=== PATIENT | female | born 1990 ===

== ENCOUNTER 2021-02-17 09:18 | Inpatient (IN) | payer OTHER ==
[2021-02-17] MEDS ORDERED: NALOXONE 0.4 MG/1 ML INJ IV PRN ×2 (09:37→12:33)
--- NOTE | 2021-02-17 09:39 | Anesthesia Consultation ---
Anesthesia Consult and Med Hx Date of service: 02/17/21 - Airway Anesthetic Teeth Evaluation: Good ROM Head & Neck: Adequate Mental/Hyoid Distance: Adequate Mallampati Class: Class II Intubation Access Assessment: Probably Good - Pulmonary Exam CTA: Yes - Cardiac Exam Cardiac Exam: RRR - Pre-Operative Health Status ASA Pre-Surgery Classification: ASA2 Proposed Anesthetic Plan: Spinal - Pulmonary Hx Smoking: No Hx Sleep Apnea: No - Cardiovascular System Hx Hypertension: No Hx Heart Attack/AMI: No Hx Angina: No - Central Nervous System Hx Neuromuscular Disorder: No Hx Seizures: No CVA: No - Gastrointestinal Hx Gastroesophageal Reflux Disease: No - Endocrine Hx Renal Disease: No Hx Liver Disease: No Hx Insulin Dependent Diabetes: No Hx Non-Insulin Dependent Diabetes: No Hx Thyroid Disease: No - Additional Comments Anesthesia Medical History Comments: C/S x1 in [place] under S[facility]
--- NOTE | 2021-02-17 09:39 | Anesthesia Day of Surgery ---
Anesthesia Day of Surgery - Day of Surgery Patient Examined: Yes Patient H&P Reviewed: Yes Patient is NPO: Yes Beta Blockers: No Cardiac Clearance: No Pulmonary Clearance: No Yasir's Test: N/A
[2021-02-17] MEDS ORDERED: LACTATED RINGERS 1,000 ML ONE ×2 (09:46→12:26)
[2021-02-17 09:58] LABS: Basophils # (Auto) 0.1 K/mm3 (0.0-0.1); Basophils % (Auto) 1.5 % (0.0-1.8); Eosinophils # (Auto) 0.1 K/mm3 (0.0-0.4); Eosinophils % (Auto) 0.9 % (0.0-4.3); Hematocrit 35.5 % (30.3-42.9); Hemoglobin 12.1 gm/dl (10.1-14.3); Lymphocytes # (Auto) 1.8 K/mm3 (1.2-5.4); Lymphocytes % (Auto) 24.7 % (13.4-35.0); Mean Corpuscular HGB Conc 34 % (30-34); Mean Corpuscular Volume 87 fl (79-97); Monocytes # (Auto) 0.5 K/mm3 (0.0-0.8); Monocytes % (Auto) 6.3 % (0.0-7.3); Platelet Count 241 K/mm3 (140-440); Red Blood Count 4.07 M/mm3 (3.65-5.03); Red Cell Distribution Width 13.9 % (13.2-15.2)
[2021-02-17] MEDS ORDERED: diphenhydrAMINE 50 MG/ML VIAL IV PRN (10:00)
[2021-02-17] MEDS ORDERED: PROMETHAZINE 25 MG RECT SUPP PR PRN (10:00)
[2021-02-17] MEDS ORDERED: OXYTOCIN DRIP 30 UNITS/500 ML BAG IV SCH ×2 (10:00→13:00)
[2021-02-17] MEDS: LACTATED RINGERS 1,000 ML IV SCH ×2 (10:00→10:33)
[2021-02-17] MEDS ORDERED: NalbUPHINE 10 MG/1 ML INJ IV PRN (10:00)
[2021-02-17] MEDS ORDERED: ceFAZolin/Water 2 GM/20 ML 2 GM/20 ML SYRINGE IV NR (10:00)
[2021-02-17] MEDS ORDERED: FAMOTIDINE 20 MG/2 ML INJ IV NR (10:00)
[2021-02-17] MEDS ORDERED: BICITRA ORAL LIQD 30ML PO NR (10:00)
[2021-02-17] MEDS ORDERED: ONDANSETRON 4 MG/2 ML INJ IV PRN ×2 (10:00→12:33)
[2021-02-17] MEDS ORDERED: HYDROmorphone 1 MG/1 ML INJ IV PRN (10:00)
[2021-02-17] MEDS ORDERED: PROMETHAZINE 25 MG TAB PO PRN (10:00)
[2021-02-17] MEDS ORDERED: METOCLOPRAMIDE 10 MG/2 ML INJ IV NR (10:00)
[2021-02-17] MEDS ORDERED: dexAMETHasone 20 MG/5 ML VIAL ONE (11:19)
[2021-02-17] MEDS ORDERED: KETOROLAC 30 MG/1 ML INJ ONE (11:19)
[2021-02-17] MEDS ORDERED: BUPIVACAINE/PF (0.5%) 5 MG/1 ML 30 ML VIAL INFILTRATI ONE (11:19)
[2021-02-17] MEDS ORDERED: ONDANSETRON 4 MG/2 ML INJ ONE (11:19)
--- NOTE | 2021-02-17 11:21 | History and Physical Report ---
History of Present Illness Date of examination: 02/17/21 Date of admission: 02/17/21 09:18 Chief complaint: elective repeat section History of present illness: 30-year-old -0-1-1 at 39-4/7 weeks for elective repeat section. Good movement no loss of fluid vaginal bleeding or contractions. Patient desired TOLAC but has an unfavorable cervix. Past History - Obstetrical History Expected Date of Delivery: 02/20/21 Actual Gestation: 39 Week(s) 4 Day(s) : 3 Para: 1 Spontaneous Abortions: 1 Number of Living Children: 1 Medications and Allergies Allergies Allergy/AdvReac Type Severity Reaction Status Date / Time No Known Allergies Allergy Unverified 02/17/21 09:44 Active Meds: Active Medications Citric Acid/Sodium Citrate (Bicitra Oral Liqd 30ml) 30 ml PO ONCE NR Stop: 02/17/21 12:00 Last Admin: 02/17/21 10:34 Dose: 30 ml Documented by: Diphenhydramine HCl (Diphenhydramine 50 Mg/Ml Vial) 12.5 mg IV Q2H PRN PRN Reason: Itching Hydromorphone HCl (Hydromorphone 1 Mg/1 Ml Inj) 0.5 mg IV Q4H PRN PRN Reason: breakthrough pain > 7/10 Cefazolin Sodium (Ancef/Sterile Water 2 Gm/20 Ml) 2 gm in 20 mls @ 80 mls/hr IV PREOP NR; Protocol Stop: 02/17/21 12:00 Lactated Ringer's (Lactated Ringers) 1,000 mls @ 2,250 mls/hr IV PREOP AUTUMN Stop: 02/18/21 10:27 Last Admin: 02/17/21 10:33 Dose: 2,250 mls/hr Documented by: Oxytocin/Sodium Chloride (Pitocin/Ns 30 Unit/500ml) 30 units in 500 mls @ 0 mls/hr IV TITR AUTUMN; Protocol Metoclopramide HCl (Metoclopramide 10 Mg/2 Ml Inj) 10 mg IV ONCE NR Stop: 02/17/21 11:30 Last Admin: 02/17/21 10:34 Dose: 10 mg Documented by: Nalbuphine HCl (Nalbuphine 10 Mg/1 Ml Inj) 2.5 mg IV Q2H PRN PRN Reason: Itching Naloxone HCl (Naloxone 0.4 Mg/1 Ml Inj) 0.2 mg IV Q2MIN PRN PRN Reason: Res Rate </= 8 or 02 SAT < 92% Ondansetron HCl (Ondansetron 4 Mg/2 Ml Inj) 4 mg IV Q8H PRN PRN Reason: Nausea And Vomiting Promethazine HCl (Promethazine 25 Mg Tab) 25 mg PO Q6H PRN PRN Reason: Nausea And Vomiting Promethazine HCl (Promethazine 25 Mg Rect Supp) 25 mg VT Q6H PRN PRN Reason: Nausea And Vomiting - Vital Signs Vital signs: Vital Signs Pulse Pulse Ox 99 H 97 02/17/21 09:24 02/17/21 09:24 Temp Pulse Resp BP Pulse Ox 97.5 F L 107 H 18 107/57 97 02/17/21 09:48 02/17/21 11:04 02/17/21 09:48 02/17/21 10:04 02/17/21 11:04 - Physical Exam Breasts: Positive: deferred Cardiovascular: Regular rate Lungs: Positive: Clear to auscultation Abdomen: Positive: normal appearance Genitourinary (Female): Positive: normal external genitalia Uterus: Positive: normal size Extremities: Positive: normal Deep Tendon Reflex Grade: Normal +2 - Obstetrical FHR: category 1 Cervical Dilatation: 0 Results Result Diagrams: 02/17/21 09:05 All other labs normal. Assessment and Plan ERCS NPO, television announcer to OR for procedure Informed consent obtained Olga Duarte MD
--- NOTE | 2021-02-17 11:23 | Procedure Note ---
OB Delivery Note - Delivery Date of Delivery: 02/17/21 Surgeon: RAMÓN JIMENEZ Estimated blood loss: other (600ml) - Section Postop diagnosis: same Disposition: PACU Complications: none Narrative: Preop diagnosis: IUP at 39-4/7 weeks, previous section x1 for elective repeat section Postop diagnosis: Same Procedure: Repeat low transverse section via Pfannenstiel incision Surgeon: Dr. Ramón Jimenez Anesthesia spinal Complications none EBL 600 ml IV fluids 1200 mL Urine output 150 mL, clear Drains Pickard to gravity Findings: Viable male with weight 4018gms and 8/9, normal uterus tubes and ovaries bilaterally Procedure: Patient was consented in OB triage, taken to the operating room where she received excellent spinal anesthesia. She was then placed in the dorsal supine position with a leftward tilt. The abdomen was prepped and draped in a sterile fashion, and a timeout was verified. Adequate anesthesia was confirmed prior to the skin incision. A Pfannenstiel skin incision was made with a scalpel taken down to the underlying structures and the fascia was incised in the midline. The incision was extended laterally with curved Garnica scissors, the superior and inferior aspects of the fascial incisions were grasped with Zeenat clamps and the rectus muscles dissected sharply. The abdomen was entered bluntly in the midline carried down inferiorly with good visualization of the bladder. The vesicouterine peritoneum was tented with Tajik forceps and incised in the midline with Metzenbaum scissors and the vesicouterine peritoneum taken down sharply. Bladder blade was inserted, the uterine incision was made sharply with a scalpel. The inferior and superior aspect of the uterine incisions were extended bluntly, the baby's head was delivered atraumatically. The remainder of the delivery was uncomplicated, no nuchal cord. The cord was clamped and cut and baby handed to waiting NICU team. An intact placenta with three-vessel cord delivered manually. The uterus was then cleared of all clots and debris and the uterus exteriorized. The uterine incision was closed with 2 layers of 0 chromic with excellent hemostasis. The abdomen was then irrigated with warm normal saline and the uterus placed back into the abdomen atraumatically. A second look at the uterine incision assured hemostasis. The peritoneum was closed with 3-0 Vicryl, the rectus muscles approximated with 3-0 Vicryl, and the fascia closed with 0 Vicryl in the usual fashion. The subcuticular structures were closed with interrupted sutures of 3-0 Vicryl and the skin closed with 4-0 Monocryl. A pressure dressing was applied. All sponge needle and instrument counts were correct x2. There were no complications. Mom and baby stable to PACU. EBL 600 mL Olga Jimenez MD
[2021-02-17] MEDS ORDERED: WATER FOR IRRIG STERILE 1,500 ML BOTTLE IR ONE (11:40)
[2021-02-17] MEDS ORDERED: SODIUM CHLORIDE 0.9% IRR 1,500 ML BOTTLE IR ONE (11:40)
[2021-02-17] MEDS ORDERED: PHENYLEPHRINE/NS 1,000 MCG/10 ML SYRINGE (OR USE) IV ONE (11:58)
[2021-02-17] MEDS ORDERED: ePHEDrine SULFATE 50 MG/1 ML INJ ONE (12:11)
[2021-02-17] MEDS ORDERED: SODIUM CHLORIDE P/F VIAL 10 ML 10 ML ONE (12:11)
--- NOTE | 2021-02-17 12:14 | Progress Note ---
Spinal Anesthesia Block - Spinal Anesthesia Block Start Time: 11:20 Stop Time: 11:32 Performed by:: SUNIL STERN ([facility]) Procedure: Spinal anesthesia block is being performed for [C/S]. H&P, labs have been reviewed. Patient's questions and concerns have been answered. Informed consent has been performed. Timeout has was performed. Patient in sitting position on side of bed. Sterile prep and drape was performed. 3 mL 1% lidocaine skin wheal at L [3]-L [4]. Needle introducer advanced. 25-gauge spinal needle advanced, [+] CSF [-] blood. [Marcaine 10mg and Precedex 5mcg] Spinal dose was given. All needles removed. Patient tolerated procedure well.
[2021-02-17] MEDS ORDERED: MORPHINE 4 MG/1 ML INJ IV PRN (12:33)
[2021-02-17] MEDS ORDERED: SIMETHICONE 80 MG CHEW TAB PO PRN (12:33)
[2021-02-17] MEDS ORDERED: LANOLIN/ZINC/DIMETHICONE (LANSINOH) 7 GM TP PRN (12:33)
[2021-02-17] MEDS ORDERED: MAGNESIUM HYDROXIDE (MOM) ORAL LIQD UDC PO PRN (12:33)
[2021-02-17] MEDS ORDERED: SENNOSIDES 8.6 MG TAB PO PRN (12:33)
[2021-02-17] MEDS ORDERED: WITCH HAZEL/ GLYCERIN PAD TP PRN (12:33)
--- NOTE | 2021-02-17 12:56 | Progress Note ---
Regional Anesthesia Block - Regional Anesthesia Block Start Time: 12:43 Stop Time: 12:49 Performed By:: SUNIL STERN ([facility]) Procedure: Patient consented for TAP block for post surgical pain management. Patient identified, monitors placed, and time out performed. Mid axillary TAP identified bilaterally via ultrasound. Skin prepped bilaterally with [chlorhexidine] and [20g stimuplex] needle advanced to the TAP. 35ml [Marcaine 0.215% with 25mcg Precedex and Decadron 5mg] injected under ultrasound guidance on the [left] side. 35ml [Marcaine 0.215% with 25mcg Precedex and Decadron 5mg] injected under ultrasound guidance on the [right] side.
[2021-02-17] MEDS: HYDROcodone/ACETAMINOPHEN 5-325 MG TAB PO PRN (22:17)
[2021-02-17] MEDS ORDERED: LACTATED RINGERS 1,000 ML IV SCH (22:30)
[2021-02-18 01:18] LABS: Hematocrit 30.3 % (30.3-42.9); Hemoglobin 10.1 gm/dl (10.1-14.3)
[2021-02-18] MEDS: HYDROcodone/ACETAMINOPHEN 5-325 MG TAB PO PRN ×3 (03:16→17:06)
[2021-02-18] MEDS: IBUPROFEN 600 MG TAB PO PRN ×2 (05:44→22:08)
--- NOTE | 2021-02-18 08:58 | Progress Note ---
Assessment and Plan routine Postop care Olga Duarte MD Subjective - Subjective Date of service: 02/18/21 Interval history: Patient doing well POD#1 routine PP care: ambulate, general diet, pain control PE benign: Incision c/d/i Postop Hb ~10 baby doing well, at bedside Continue routine postop care d/c to home tomorrow, rx on chart Olga Duarte MD Patient reports: appetite normal, voiding normally, pain well controlled, ambulating normally Objective - Vital Signs Latest vital signs: Vital Signs Temp Pulse Resp BP BP Pulse Ox 02/18/21 05:56 98.0 F 98 02/18/21 05:46 72 105/65 96 02/18/21 01:21 98.5 F 72 20 89/52 95 02/17/21 20:54 98.2 F 69 20 105/55 96 02/17/21 14:43 97.4 F L 77 16 103/68 97 02/17/21 13:40 97.7 F 70 16 109/49 98 02/17/21 13:25 73 16 102/52 98 02/17/21 13:10 70 14 109/58 98 02/17/21 12:55 66 18 115/55 98 02/17/21 12:50 67 16 119/65 98 02/17/21 12:45 58 L 17 106/60 98 02/17/21 12:39 97.8 F 70 17 96/49 98 02/17/21 11:04 107 H 97 02/17/21 11:01 92 H 94 02/17/21 10:59 94 H 96 02/17/21 10:54 86 96 02/17/21 10:49 102 H 97 02/17/21 10:44 83 97 02/17/21 10:39 102 H 98 02/17/21 10:34 88 98 02/17/21 10:29 89 97 02/17/21 10:24 90 98 02/17/21 10:19 84 98 02/17/21 10:14 85 98 02/17/21 10:09 89 98 02/17/21 10:04 88 107/57 97 02/17/21 09:59 89 97 02/17/21 09:54 86 98 02/17/21 09:49 99 H 97 02/17/21 09:48 97.5 F L 83 18 107/57 97 02/17/21 09:44 89 97 02/17/21 09:43 99 H 112/74 02/17/21 09:39 95 H 97 02/17/21 09:34 89 98 02/17/21 09:29 92 H 97 02/17/21 09:24 99 H 97 Intake and Output 02/17/21 02/18/21 02/18/21 23:59 07:59 15:59 Intake Total 240 Output Total 400 800 Balance -400 -560 Intake: Oral 240 Output: Urine 400 800 Indwelling Catheter 400 600 Void 200 Other: Total, Intake Amount 240 Total, Output Amount 400 200 # Voids Void 1 - Exam Breasts: Present: normal Cardiovascular: Present: Regular rate Abdomen: Present: normal appearance, soft, normal bowel sounds Uterus: Present: normal, firm Extremities: Present: normal, edema Deep Tendon Reflex Grade: Normal but brisk +3 Incision: Present: normal, dry, intact, dressed
[2021-02-19] MEDS: HYDROcodone/ACETAMINOPHEN 5-325 MG TAB PO PRN ×3 (00:38→17:27)
--- NOTE | 2021-02-19 11:17 | Discharge Summary ---
Providers - Providers Date of Admission: 02/17/21 09:18 Date of discharge: 02/19/21 Attending physician: RAMÓN JIMENEZ MD Primary care physician: RAMÓN JIMENEZ MD Hospitalization Reason for admission: section Delivery: Procedure: repeat low transverse Episiotomy: none Laceration: none Incision: normal, dry, intact Other procedures: none complications: none Discharge diagnosis: IUP at term delivered [place] baby: male Hospital course: Pt had a repeat LTCS w/o complications. She wanted a TOLAC, but MD determined that her cervix was not favorable. See H&P, delivery summary, and pp notes. Condition at discharge: Stable Disposition: DC-01 TO HOME OR SELFCARE - Discharge Diagnoses (1) delivery delivered Status: Acute Plan - Discharge Medications Prescriptions: Ibuprofen [Motrin] 600 mg PO Q8H PRN #30 tablet PRN Reason: Pain oxyCODONE /ACETAMINOPHEN [Percocet 5/325] 1 tab PO Q6HR PRN #20 tablet PRN Reason: Pain - Provider Discharge Summary Activity: routine, no sex for 6 weeks, no heavy lifting 4 weeks, no strenuous exercise Diet: routine Instructions: routine Additional instructions: [] Smoking cessation referral if applicable(refer to patient education folder for contact #) [] Refer to [facility] Booklet Call your doctor immediately for: * Fever > 100.5 * Heavy vaginal bleeding ( >1 pad per hour) * Severe persistent headache * Shortness of breath * Reddened, hot, painful area to leg or breast * Drainage or odor from incision. * Keep incision clean and dry at all times and follow doctor's instructions regarding bathing/showering - Follow up plan Follow up: RAMÓN JIMENEZ MD [Primary Care Provider] - 14 Days
[2021-02-19] MEDS: IBUPROFEN 600 MG TAB PO PRN (19:45)
[2021-02-20] MEDS: HYDROcodone/ACETAMINOPHEN 5-325 MG TAB PO PRN ×2 (00:04→08:45)
[2021-02-20 12:22] VITALS: BP 112/84
[2021-02-20] MEDS: IBUPROFEN 600 MG TAB PO PRN (12:35)
== END 2021-02-20 13:15 | disposition home or self-care (01) | DRG 788 ==
LOC: APU 09:18 → OB 14:18
PROVIDERS: ADMIT Obstetrics & Gynecology; ATTEND Obstetrics & Gynecology
PROC: 10D00Z1 Extraction of Products of Conception, Low, Open Approach (ICD-10-PCS; principal; 2021-02-17)
DX: O34.211 Maternal care for low transverse scar from previous cesarean delivery (principal); Z3A.39 39 weeks gestation of pregnancy; Z37.0 Single live birth; Z20.822 Contact with and (suspected) exposure to COVID-19
CPT/HCPCS: 36415; 85014; 85018; 85025; 86850; 86900; 86901; G0378; A6250; J1100; J1170; J1885; J2370; J2405; J2765; J3490; J7120; Q0169; U0003

== ENCOUNTER 2021-03-10 11:11 | Emergency (ER) | payer SELFPAY ==
--- NOTE | 2021-03-10 11:36 | Event Note ---
ED Screening Note ED Screening Note: epigastric abd pain and RUQ pain that began 3 AM on february 17 states she had right ovarian removal but she is not sure why no fever +nausea no vomiting or diarrhea +dysuria +vaginal bleeding This initial assessment/diagnostic orders/clinical plan/treatment(s) is/are subject to change based on patients health status, clinical progression and re- assessment by fellow clinical providers in the ED. Further treatment and workup at subsequent clinical providers discretion. Patient/guardian urged not to elope from the ED as their condition may be serious if not clinically assessed and managed. Initial orders include: labs, UA
[2021-03-10 12:25] LABS: Basophils # (Auto) 0.1 K/mm3 (0.0-0.1); Basophils % (Auto) 0.7 % (0.0-1.8); Eosinophils # (Auto) 0.1 K/mm3 (0.0-0.4); Eosinophils % (Auto) 0.6 % (0.0-4.3); Hematocrit 42.6 % (30.3-42.9); Hemoglobin 13.8 gm/dl (10.1-14.3); Lymphocytes # (Auto) 1.8 K/mm3 (1.2-5.4); Lymphocytes % (Auto) 20.5 % (13.4-35.0); Mean Corpuscular HGB Conc 32 % (30-34); Mean Corpuscular Volume 89 fl (79-97); Monocytes # (Auto) 0.3 K/mm3 (0.0-0.8); Monocytes % (Auto) 3.9 % (0.0-7.3); Platelet Count 359 K/mm3 (140-440); Red Blood Count 4.81 M/mm3 (3.65-5.03); Red Cell Distribution Width 13.8 % (13.2-15.2)
[2021-03-10 12:30] LABS: Bilirubin,Urine NEG (Negative); Blood,Urine MOD (Negative); Color,Urine Yellow (Yellow); Protein,Urine <15 mg/dL mg/dL (Negative); Urobilinogen,Urine < 2.0 mg/dL (<2.0)
[2021-03-10 12:40] LABS: Bacteria,Urine 1+ /HPF (Negative); Mucus,Urine FEW /HPF
[2021-03-10 13:01] LABS: Alanine Aminotransferase 112 units/L (7-56); Albumin 4.7 g/dL (3.9-5); BUN/Creatinine Ratio 13; Blood Urea Nitrogen 8 mg/dL (7-17); Calcium 9.7 mg/dL (8.4-10.2); Hemolysis Index 3
--- NOTE | 2021-03-10 15:34 | Cat Scan Report ---
CT ABDOMEN AND PELVIS WITH CONTRAST INDICATION / CLINICAL INFORMATION: Right upper quadrant and epigastric pain, elevated liver function testing. TECHNIQUE: Axial CT images were obtained through the abdomen and pelvis after 100 cc Omnipaque [address] scans at this location are performed using CT dose reduction for ALARA by means of automated exposure control. COMPARISON: None available. FINDINGS: LOWER CHEST: No significant abnormality. LIVER: There is generalized steatosis without other significant abnormalities. GALLBLADDER: No significant abnormality. BILE DUCTS: No significant abnormality. PANCREAS: There is a thinly septated lobulated cystic lesion arising along the pancreatic tail on carmen ge 33 of series 4 measuring 2.7 x 2.0 cm. No other significant abnormality. SPLEEN: No significant abnormality. ADRENALS: No significant abnormality. RIGHT KIDNEY / URETER: No significant abnormality. LEFT KIDNEY / URETER: No significant abnormality. STOMACH / SMALL BOWEL: No significant abnormality. COLON: No significant abnormality. APPENDIX: Not well-visualized. No suspicious inflammation along the right lower quadrant concerning f or acute appendicitis is identified. PERITONEUM: No free fluid. No free air. No fluid collection. LYMPH NODES: No significant adenopathy. AORTA / ARTERIES: No significant abnormality. IVC / VEINS: No significant abnormality. URINARY BLADDER: No significant abnormality. REPRODUCTIVE ORGANS: No significant abnormality. ADDITIONAL FINDINGS: None. SKELETAL SYSTEM: No significant abnormality. IMPRESSION: 1. No acute abnormality of the abdomen or pelvis. 2. Benign-appearing cystic lesion in the pancreatic tail as above. A follow-up CT abdomen with and wi thout contrast (pancreas protocol) in 3 months is recommended. Signer Name: Hamlet Sheppard MD Signed: 03/10/2021 3:26 PM Workstation Name: [email or web address]
--- NOTE | 2021-03-10 17:00 | Emergency Department Report ---
ED General Adult HPI - General Chief complaint: Abdominal Pain Stated complaint: ADB PAIN/COMPLICATION OF SURGERY Time Seen by Provider: 03/10/21 11:33 Source: patient, sign language interpreter Mode of arrival: Ambulatory Limitations: No Limitations - History of Present Illness Initial comments: Patient presents to emergency department with a chief complaint of abdominal pain that is been present since 17 of February status post a . Patient describes the pain is sharp in nature and denies any radiation. Patient denies any vaginal bleeding or discharge. Patient does endorse burning with urination. Patient denies chest pain, shortness breath, or headache. -: week(s) Location: abdomen Radiation: non-radiation Severity scale (0 -10): 5 Quality: sharp Consistency: intermittent Improves with: none Worsens with: none Associated Symptoms: denies other symptoms Treatments Prior to Arrival: none - Related Data Previous Rx's Medication Instructions Recorded Last Taken Type Ibuprofen [Motrin] 600 mg PO Q8H PRN #30 tablet 02/17/21 Unknown Rx oxyCODONE /ACETAMINOPHEN [Percocet 1 tab PO Q6HR PRN #20 tablet 02/17/21 Unknown Rx 5/325] cephALEXin [Keflex] 500 mg PO BID #14 capsule 03/10/21 Unknown Rx traMADoL [Ultram] 50 mg PO Q6HR PRN #24 tablet 03/10/21 Unknown Rx Allergies Allergy/AdvReac Type Severity Reaction Status Date / Time No Known Allergies Allergy Unverified 02/17/21 09:44 ED Review of Systems ROS: Stated complaint: ADB PAIN/COMPLICATION OF SURGERY Other details as noted in HPI Constitutional: denies: chills, fever Eyes: denies: eye pain, eye discharge, vision change ENT: denies: ear pain, throat pain Respiratory: denies: cough, shortness of breath, wheezing Cardiovascular: denies: chest pain, palpitations Endocrine: no symptoms reported Gastrointestinal: abdominal pain. denies: nausea, diarrhea Genitourinary: denies: urgency, dysuria, discharge Musculoskeletal: denies: back pain, joint swelling, arthralgia Skin: denies: rash, lesions Neurological: denies: headache, weakness, paresthesias Psychiatric: denies: anxiety, depression Hematological/Lymphatic: denies: easy bleeding, easy bruising ED Past Medical Hx - Past Medical History Hx Hypertension: No Hx Heart Attack/AMI: No Hx Congestive Heart Failure: No Hx Diabetes: No Hx Deep Vein Thrombosis: No Hx Liver Disease: No Hx Renal Disease: No Hx Sickle Cell Disease: No Hx Seizures: No Hx Asthma: No Hx COPD: No Hx HIV: No - Surgical History Additional Surgical History: - Social History Smoking Status: Never Smoker - Medications Home Medications: Home Medications Medication Instructions Recorded Confirmed Last Taken Type Ibuprofen [Motrin] 600 mg PO Q8H PRN #30 tablet 02/17/21 Unknown Rx oxyCODONE /ACETAMINOPHEN [Percocet 1 tab PO Q6HR PRN #20 tablet 02/17/21 Unknown Rx 5/325] cephALEXin [Keflex] 500 mg PO BID #14 capsule 03/10/21 Unknown Rx traMADoL [Ultram] 50 mg PO Q6HR PRN #24 tablet 03/10/21 Unknown Rx ED Physical Exam - General Limitations: No Limitations General appearance: alert, in no apparent distress - Head Head exam: Present: atraumatic, normocephalic - Eye Eye exam: Present: normal appearance, PERRL, EOMI - ENT ENT exam: Present: mucous membranes moist - Neck Neck exam: Present: normal inspection - Respiratory Respiratory exam: Present: normal lung sounds bilaterally. Absent: respiratory distress - Cardiovascular Cardiovascular Exam: Present: regular rate, normal rhythm. Absent: systolic murmur, diastolic murmur, rubs, gallop - GI/Abdominal GI/Abdominal exam: Present: soft, tenderness (Mild tenderness to palpation left upper quadrant), normal bowel sounds. Absent: distended - Extremities Exam Extremities exam: Present: normal inspection - Back Exam Back exam: Present: normal inspection - Neurological Exam Neurological exam: Present: alert, oriented X3 - Psychiatric Psychiatric exam: Present: normal affect, normal mood - Skin Skin exam: Present: warm, dry, intact, normal color. Absent: rash ED Course Vital Signs 03/10/21 11:17 Temperature 97.9 F Pulse Rate 93 H Respiratory 22 Rate Blood Pressure 131/89 O2 Sat by Pulse 99 Oximetry ED Medical Decision Making - Lab Data Result diagrams: 03/10/21 11:46 03/10/21 11:46 Lab Results 03/10/21 03/10/21 03/10/21 Range/Units 11:46 11:46 11:46 WBC 9.0 (4.5-11.0) K/mm3 RBC 4.81 (3.65-5.03) M/mm3 Hgb 13.8 (10.1-14.3) gm/dl Hct 42.6 (30.3-42.9) % MCV 89 (79-97) fl MCH 29 (28-32) pg MCHC 32 (30-34) % RDW 13.8 (13.2-15.2) % Plt Count 359 (140-440) K/mm3 Lymph % (Auto) 20.5 (13.4-35.0) % [place] % (Auto) 3.9 (0.0-7.3) % Eos % (Auto) 0.6 (0.0-4.3) % Baso % (Auto) 0.7 (0.0-1.8) % Lymph # (Auto) 1.8 (1.2-5.4) K/mm3 [place] # (Auto) 0.3 (0.0-0.8) K/mm3 Eos # (Auto) 0.1 (0.0-0.4) K/mm3 Baso # (Auto) 0.1 (0.0-0.1) K/mm3 Seg Neutrophils % 74.3 H (40.0-70.0) % Seg Neutrophils # 6.7 (1.8-7.7) K/mm3 Sodium 139 (137-145) mmol/L Potassium 3.9 (3.6-5.0) mmol/L Chloride 100.6 (98-107) mmol/L Carbon Dioxide 28 (22-30) mmol/L Anion Gap 14 mmol/L BUN 8 (7-17) mg/dL Creatinine 0.6 (0.6-1.2) mg/dL Estimated GFR > 60 ml/min BUN/Creatinine Ratio 13 % Glucose 85 (65-100) mg/dL Calcium 9.7 (8.4-10.2) mg/dL Total Bilirubin 0.80 (0.1-1.2) mg/dL AST 75 H (5-40) units/L ALT 112 H (7-56) units/L Alkaline Phosphatase 155 H (35-129) units/L Total Protein 8.0 (6.3-8.2) g/dL Albumin 4.7 (3.9-5) g/dL Albumin/Globulin Ratio 1.4 % Lipase 57 (13-60) units/L HCG, Qual Negative (Negative) Urine Color (Yellow) Urine Turbidity (Clear) Urine pH (5.0-7.0) Ur Specific [place] (1.003-1.030) Urine Protein (Negative) mg/dL Urine Glucose (UA) (Negative) mg/dL Urine Ketones (Negative) mg/dL Urine Blood (Negative) Urine Nitrite (Negative) Urine Bilirubin (Negative) Urine Urobilinogen (<2.0) mg/dL Ur Leukocyte Esterase (Negative) Urine WBC (Auto) (0.0-6.0) /HPF Urine RBC (Auto) (0.0-6.0) /HPF U Epithel Cells (Auto) (0-13.0) /HPF Urine Bacteria (Auto) (Negative) /HPF Urine Mucus /HPF 03/10/21 Range/Units 12:06 WBC (4.5-11.0) K/mm3 RBC (3.65-5.03) M/mm3 Hgb (10.1-14.3) gm/dl Hct (30.3-42.9) % MCV (79-97) fl MCH (28-32) pg MCHC (30-34) % RDW (13.2-15.2) % Plt Count (140-440) K/mm3 Lymph % (Auto) (13.4-35.0) % [place] % (Auto) (0.0-7.3) % Eos % (Auto) (0.0-4.3) % Baso % (Auto) (0.0-1.8) % Lymph # (Auto) (1.2-5.4) K/mm3 [place] # (Auto) (0.0-0.8) K/mm3 Eos # (Auto) (0.0-0.4) K/mm3 Baso # (Auto) (0.0-0.1) K/mm3 Seg Neutrophils % (40.0-70.0) % Seg Neutrophils # (1.8-7.7) K/mm3 Sodium (137-145) mmol/L Potassium (3.6-5.0) mmol/L Chloride (98-107) mmol/L Carbon Dioxide (22-30) mmol/L Anion Gap mmol/L BUN (7-17) mg/dL Creatinine (0.6-1.2) mg/dL Estimated GFR ml/min BUN/Creatinine Ratio % Glucose (65-100) mg/dL Calcium (8.4-10.2) mg/dL Total Bilirubin (0.1-1.2) mg/dL AST (5-40) units/L ALT (7-56) units/L Alkaline Phosphatase (35-129) units/L Total Protein (6.3-8.2) g/dL Albumin (3.9-5) g/dL Albumin/Globulin Ratio % Lipase (13-60) units/L HCG, Qual (Negative) Urine Color Yellow (Yellow) Urine Turbidity Clear (Clear) Urine pH 6.0 (5.0-7.0) Ur Specific [place] 1.009 (1.003-1.030) Urine Protein <15 mg/dl (Negative) mg/dL Urine Glucose (UA) Neg (Negative) mg/dL Urine Ketones Neg (Negative) mg/dL Urine Blood Mod (Negative) Urine Nitrite Neg (Negative) Urine Bilirubin Neg (Negative) Urine Urobilinogen < 2.0 (<2.0) mg/dL Ur Leukocyte Esterase Sm (Negative) Urine WBC (Auto) 2.0 (0.0-6.0) /HPF Urine RBC (Auto) 2.0 (0.0-6.0) /HPF U Epithel Cells (Auto) < 1.0 (0-13.0) /HPF Urine Bacteria (Auto) 1+ (Negative) /HPF Urine Mucus Few /HPF - Radiology Data Radiology results: report reviewed - Medical Decision Making Results discussed with patient via sign language interpreter Via the sign language interpreter the patient was instructed to have repeat CT done in 3 months for evaluation of a cyst of the pancreatic tail. Critical care attestation.: If time is entered above; I have spent that time in minutes in the direct care of this critically ill patient, excluding procedure time. ED Disposition Clinical Impression: Abdominal pain, Dysuria, Pancreatic cyst Disposition: DC- TO HOME OR SELFCARE Is pt being admited?: No Does the pt Need Aspirin: No Condition: Stable Instructions: Abdominal Pain (ED), Dysuria, Abdominal Pain, Adult Additional Instructions: Please have a repeat CAT scan done for evaluation of the pancreatic cyst in 3 months as we discussed via the sign language interpreter Referrals: ASHA THAO MD [Primary Care Provider] - 3-5 Days CONCHA VALERO MD [Staff Physician] - 3-5 Days [facility] [Provider Group] - 3-5 Days [facility] [Provider Group] - 3-5 Days Time of Disposition: 17:00 Print Language: SUDANESE
[2021-03-10 18:07] VITALS: BP 122/78
== END 2021-03-10 18:06 | disposition home or self-care (01) ==
LOC: ED 11:11
DX: K86.2 Cyst of pancreas (principal); R30.0 Dysuria; Z79.899 Other long term (current) drug therapy
CPT/HCPCS: 36415; 74177; 80053; 81001; 83690; 84703; 85025; 99284; Q9967